=== PATIENT | female | born 1945 | race Caucasian/White ===

== ENCOUNTER 2016-10-23 15:19 | Emergency (ER) | payer MEDICARE, MEDICAID ==
[~2016-10-23] VITALS: Ht 152.4 cm; Wt 69.5 kg
[~2016-10-23 15:19] MED LIST: ACET-171 PO; ALBU2.5V4 INHALATION; ASPI325T32 PO; ATOR80TA PO; BENA20TA PO; BUPR150T12 PO; CITA40TA13 PO; DILT120C52 PO; DOCU250C2 PO; FERR-83 PO; FUR20 PO; GABA-500 PO; INSU100I18 SUBQ; LACT1CAP65 PO; LIDO700A33 TOPICAL; METO25TA6 PO; MORP-32 PO; O SUBCUTA079; OMEP20CA11 PO; OXYC-474 PO; POTA-62 PO; PRAM0.122 PO; QUET25TA PO; SENN-133 PO
[2016-10-23 15:29] VITALS: BP 134/81; PULSE 69; O2SAT 94
--- NOTE | 2016-10-23 17:13 | ED.REPORT ---
HPI-General Illness Date of Service Oct 23, 2016 ED Provider: Srikanth Chiang MD A 71 year old female with a history of colon cancer with colon resection, diabetes, hypertension, and cholecystectomy is brought to the ED via EMS complaining of abdominal pain and a flea infestation. The pt states that she has "over one hundred polyps" in her abdomen that have been causing pain and "pressing into her esophagus" to cause shortness of breath. This condition is being followed up by JAMES Karimi. The pain occurred intermittently two days ago, but became severe enough today that she called paramedics. Her symptoms have mostly resolved in the ED. The pt is also very concerned about fleas on her head and back. She states that she has shaved her hair and put pesticides on her head in an attempt to rid herself of them, but this has not been effective. Nursing Notes Stated Complaint: ABDOMINAL PAIN Chief Complaint: Chest Pain Nursing Notes Reviewed: Yes Allergies: Coded Allergies: Penicillins (Verified Allergy, Severe, RASH, 06/06/16) iodine (Verified Allergy, Severe, SWELLING, 06/06/16) Contrast Media (Verified Allergy, Unknown, SWELLING, 06/06/16) TAPE (Verified Allergy, Unknown, Rash,SWELLING, 06/06/16) Scheduled Acetaminophen (Acetaminophen) 500 Mg Tablet 1,000 MG PO Q6H Aspirin (Aspirin) 325 Mg Tablet 325 MG PO DAILY Atorvastatin (Lipitor) 80 Mg Tablet 80 MG PO DAILY Benazepril (Benazepril) 20 Mg Tablet 20 MG PO DAILY Bupropion ER (Bupropion ER) 150 Mg Tablet.er 150 MG PO DAILY Citalopram (Citalopram) 40 Mg Tablet 40 MG PO DAILY Diltiazem ER (Cartia XT) 120 Mg Cap.er.24h 120 MG PO DAILY Ferrous Sulfate (Ferrous Sulfate) 325 Mg Tablet 325 MG PO DAILY Gabapentin (Gabapentin) 100 Mg Capsule 600 MG PO TID Heparin Sod (Porcine) (Heparin Sod 5,000 Unit/0.5 ml) 0.5 Ml Ml 5,000 UNIT [id number] q 8 hrs Insulin Lispro (HumaLOG U100 Insulin Pen) 100 Unit/1 Ml Insuln.pen 1 UNIT SUBQ BIDAC Blood Sugar Lispro Correction <151 0 units 151-175 1 unit 176-200 2 units 201-225 3 units 226-250 4 units 251-275 5 units 276-300 6 units 301-325 7 units 326-350 8 units 351-375 9 units 376-400 10 units >400 12 units Check blood sugars before meals and at bedtime. Use correction factor only before meals. Lactobacillus Acidophilus (Probiotic) 1 Each Capsule 1 EACH PO BID Metoprolol Tartrate (Metoprolol Tartrate) 25 Mg Tablet 25 MG PO HS Morphine Sulfate ER (Morphine Sulfate ER) 15 Mg Tablet 15 MG PO TID Omeprazole (Omeprazole) 20 Mg Capsule.dr 20 MG PO DAILY Potassium Chloride ER (Potassium Chloride ER) 20 Meq Tablet.er 20 MEQ PO BID TAKE WITH FOOD Pramipexole Dihydrochloride (Mirapex) 0.125 Mg Tablet 0.125 MG PO HS MAY TAKE 1-2 TABS Quetiapine Fumarate (Seroquel) 25 Mg Tablet 25 MG PO HS Sennosides (Senna) 8.6 Mg Tablet 8.6 MG PO DAILY Scheduled PRN Albuterol Neb Soln (Albuterol Neb Soln) 2.5 Mg/3 Ml Vial.neb 2.5 MG INHALATION Q4H PRN PRN For Shortness of Breath Docusate Sodium (Docusate Sodium) 250 Mg Capsule 250 MG PO BID PRN PRN For Constipation Furosemide (Furosemide) 20 Mg Tab 20 MG PO DAILY PRN PRN prn Oxycodone (Roxicodone) 5 Mg Tablet 10 MG PO Q4H PRN PRN For Pain Miscellaneous Medications Lidocaine (Lidocaine) 700 Mg Adh..patch 700 MG TOPICAL Bilateral shoulders - remove after 12hrs General Time Seen by MD: 17:12 Chief Complaint Abdominal pain Hx Obtained From: Patient, EMS Arrived By: Ambulance Sudden in Onset?: No Recent Healthcare: No recent hospitalization, Recent doctor visit Similar Sx Previous: Yes Past Medical History Past Medical History Colon cancer in 2010 Arthritis Reports: Diabetes mellitus, Hyperlipidemia, Hypertension Reports: Atrial fibrillation Past Surgical History Colon ressection 2 back surgueries Left total knee replaement surgery neck surgery 05/05/16 Reports: Cholecystectomy Smoking History Never Smoker Social History Alcohol Use: "Social" Drug Use: Denies drug use Ambulatory Status Independent Review of Systems flea uriel Full Review of Systems Constitutional: Denies: Fever Respiratory: Reports: Shortness of breath, Denies: Non-productive cough GI: Reports: Abdominal pain, Denies: Nausea, Vomiting Musculoskeletal: Denies: Back pain, Neck pain Skin: Denies Rash Complete sys rev & neg: except as marked. Physical Exam Vital Signs Vital Signs Date Time Temp Pulse Resp B/P Pulse Ox O2 Delivery O2 Flow Rate FiO2 10/23/16 17:51 74 20 96 10/23/16 15:29 36.6 69 134/81 94 Room Air Initial VS: Reviewed General/Constitutional: Awake, Alert no fleas visualized on exam Head / Eyes: Atraumatic, Normocephalic, PERRL, EOMI ENT: Atraumatic, Airway patent, Mucous membranes moist Neck: Atraumatic, Supple, Full range of motion Respiratory / Chest: Atraumatic, Breath sounds NL, Breath sounds = bilat, No respiratory distress Cardiovascular: Heart rate NL, Regular rhythm, Heart sounds NL Abdomen: Atraumatic, Soft, Non-tender Back: Atraumatic, Full range of motion Upper Extremities Upper Extremity / MS: Atraumatic, Full range of motion Lower Extremity / Pelvis / MS: Atraumatic, Full range of motion Skin: Atraumatic, Color NL, No rash, Warm, Dry Neurologic: Oriented X3, Speech NL, No motor deficits, No sensory deficits Psychiatric: Affect NL, Mood NL Re-Eval/Medical Decision Med Decision/Clinical Course This woman has a somewhat puzzling presentation. She talks about the 100s of polyps in her stomach and believes that they were the source of the symptoms she was suffering earlier today that have subsequently resolved. She mainly wants to talk about the fleas on her head and now they have been tormenting her for these past weeks. She says that she has put many pesticide products on her head and around her apartment but to no avail. She says that she is also shaved her head in an effort to eradicate the infestation of fleas. She says that she can feel them crawling down her back. When I examined her I do not see any fleas. I looked over her head very thoroughly with a bright light and I cannot see anything that looks until fully. She tells me that her head scarf is also covered in flea larva. I looked at her head scarf carefully and I can see some lint and some whitish material but nothing that looks like a larva or fleas. I did see one black void firm speck but does have somewhat of an appearance of a flea. I looked at it under the loops outside the room in a bright light and I cannot convince myself one way or the other. In any case, she seems quite irritated with me that I do not believe that she has fleas on her head. She has no further complaints about her chest or abdomen and has normal vital signs and a normal exams are not under any other workup right now. I encouraged her to follow up with her primary care doctor to discuss these matters. Source of Hx: Old records Counseled Regarding: Diagnosis, Need for follow-up, When/why to return to ED Discharge & Departure Primary Impression: Abdominal pain Abdominal location: generalized Qualified Code: R10.84 - Generalized abdominal pain Additional Impression: Trichotillomania Disposition: Home Discharge Condition All VS Reviewed: Yes Condition: Stable Patient Instructions: Acute Abdominal Pain (ED) Additional Instructions: I do not suspect an immediately dangerous cause for your abdominal pain or chest pain earlier today. I do not see any fleas on your head. I recommend he follow up with your doctor in the coming week to discuss these symptoms and investigate further as indicated. Referrals: Cat Fuller DO (PCP) Flaco Manning MD Attestation Portions of this note were transcribed by Juan Francisco Neff. I, Dr. Chiang personally performed the history, physical exam and medical decision-making; I reviewed and confirmed the accuracy of the information in the transcribed note. Signed by: Alysha Morris, 10/23/2016 and 17:39. copies to: Cat Fuller DO; Flaco Manning MD, Kirk H MD Oct 23, 2016 17:13 JUAN FRANCISCO NEFF Oct 23, 2016 17:25
[2016-10-23 17:51] VITALS: PULSE 74; RESP 20; O2SAT 96
[2016-11-15] MEDS ORDERED: METF-496 PO (10:34)
[2016-11-15] MEDS ORDERED: ZLP5T PO (10:34)
[2016-11-15] MEDS ORDERED: INSLIS SUBQ (10:34)
[2016-11-15] MEDS ORDERED: ATOR80TA PO (10:34)
[2016-11-15] MEDS ORDERED: GLIP10TA10 PO (10:34)
[2017-02-07] MEDS ORDERED: NYST1000 PO (14:48)
[2017-02-07] MEDS ORDERED: MELO-259 PO (14:48)
[2017-02-07] MEDS ORDERED: ACET-171 PO (14:48)
[2017-02-07] MEDS ORDERED: ALBU1.25 INHALATION (14:48)
[2017-02-07] MEDS ORDERED: ALBU90AE IH (14:48)
== END 2016-10-23 17:56 | disposition home or self-care (01) ==
LOC: SED 15:19
DX: R10.84 Generalized abdominal pain (principal); F63.3 Trichotillomania; E11.9 Type 2 diabetes mellitus without complications; I10 Essential (primary) hypertension; E78.5 Hyperlipidemia, unspecified; Z85.038 Personal history of other malignant neoplasm of large intestine; Z79.82 Long term (current) use of aspirin; Z79.4 Long term (current) use of insulin; Z79.899 Other long term (current) drug therapy; Z90.49 Acquired absence of other specified parts of digestive tract; Z91.041 Radiographic dye allergy status; Z88.0 Allergy status to penicillin

== ENCOUNTER 2016-11-16 07:17 | Day surgery (SDC) | payer MEDICARE, MEDICAID ==
[~2016-11-16] VITALS: Ht 152.4 cm; Wt 70.0 kg
[~2016-11-16 07:17] MED LIST changes: +GLIP10TA10 PO; +INSLIS SUBQ; +METF-496 PO; +ZLP5T PO
[2016-11-16] MEDS ORDERED: Propofol 10,000 mCg/mL 20 mL Inj ONE (07:18)
[2016-11-16] MEDS ORDERED: fentaNYL-PF 50 mCg/mL 2 mL Inj ONE (07:18)
--- NOTE | 2016-11-16 07:20 | PCM.HPANE ---
Patient Data Surgeon Admitting Provider: Attending Provider:Flaco Manning MD Primary Care Physician:Cat Fuller DO Other Provider:Leah Madsen Anesthesia Reason for Visit Gastric Polyps Ht/WT & BMI Body Mass Index Allergies Coded Allergies: Penicillins (Verified Allergy, Severe, RASH, 11/15/16) iodine (Verified Allergy, Severe, SWELLING, 11/15/16) Contrast Media (Verified Allergy, Unknown, SWELLING, 11/15/16) TAPE (Verified Allergy, Unknown, Rash,SWELLING, 11/15/16) Past Anesthesia History Anesthesia History: Denies:: Abnormal Airway, Anesthesia Reactions, Difficult Intubation, Fam Anesthesia Reaction, Fam Malignant Hypertherm, Malignant Hyperthermia Diabetes History Hx Diabetes?: Yes Type of Diabetes: Type II Glycemic Control: Insulin & Oral Medication MRSA MRSA: No Medications Blood Thinner: Aspirin Active Scripts Benazepril 20 Mg Lazlbe84 Mg PO DAILY #30 TABLET Ref 1 Prov:Quirino Koehler DO 06/08/16 Reported Medications Insulin Detemir (Levemir U100 Insulin Vial)100 Unit/1 Ml Vial1 Unit SUBQ BID #1 VIAL Ref 0 11/16/16 HydrOXYzine HCl 10 Mg Lcbrrf42 Mg PO HS PRN For Itching Ref 0 11/16/16 Metformin ER 1,000 Mg Tablet1,000 Mg PO DAILY Ref 0 11/15/16 Atorvastatin (Lipitor)80 Mg Lqajou90 Mg PO DAILY Ref 0 11/15/16 Glipizide 10 Mg Vvljbn18 Mg PO DAILY 30 Days 11/15/16 Zolpidem (Ambien)5 Mg Tablet5 Mg PO HS PRN For Insomnia Ref 0 11/15/16 Lactobacillus Acidophilus (Probiotic)1 Each Capsule1 Each PO BID 06/07/16 Docusate Sodium 250 Mg Gorzhqb003 Mg PO BID PRN For Constipation Ref 0 06/07/16 Oxycodone (Roxicodone)5 Mg Hkbaus58 Mg PO Q4H PRN For Pain Ref 0 06/07/16 Morphine Sulfate ER 15 Mg Zgctra85 Mg PO TID 06/07/16 Ferrous Sulfate 325 Mg Lklnyx336 Mg PO DAILY 30 Days Ref 0 06/07/16 Diltiazem ER (Cartia XT)120 Mg Cap.er.89l970 Mg PO DAILY 06/07/16 Bupropion ER 150 Mg Tablet.er150 Mg PO DAILY Ref 0 06/07/16 Aspirin 325 Mg Wsjpkg599 Mg PO DAILY #1 BOTTLE 06/07/16 Citalopram 40 Mg Jslxfs96 Mg PO DAILY 30 Days Ref 0 08/18/15 Furosemide 20 Mg Tab20 Mg PO DAILY PRN prn Ref 0 05/26/15 Omeprazole 20 Mg Capsule.dr20 Mg PO DAILY Ref 0 04/28/15 Metoprolol Tartrate 25 Mg Qpioir07 Mg PO HS 30 Days Ref 0 03/31/15 Gabapentin 100 Mg Jriibrk531 Mg PO TID 30 Days Ref 0 03/17/15 Discontinued Reported Medications Insulin Human Lispro (HumaLOG U100 Insulin Vial)100 Unit/Ml Unit1 Unit SUBQ PRN #1 VIAL Ref 0 Check blood sugars before meals and at bedtime. Use correction factor only before meals. Blood Sugar Lispro Correction: <151, 0 units; 151-175, 1 unit; 176-200, 2 units; 201-225, 3 units; 226-250, 4 units; 251-275, 5 units; 276-300, 6 units; 301-325, 7 units; 326-350, 8 units; 351-375, 9 units; 376-400, 10 units; >400, 12 units. 11/15/16 Lidocaine 700 Mg Adh.. Mg TOPICAL Bilateral shoulders - remove after 12hrs 06/07/16 Insulin Lispro (HumaLOG U100 Insulin Pen)100 Unit/1 Ml Insuln.pen1 Unit SUBQ BIDAC #1 PENINJ Ref 0 Blood Sugar Lispro Correction <151 0 units 151-175 1 unit 176-200 2 units 201-225 3 units 226-250 4 units 251-275 5 units 276-300 6 units 301-325 7 units 326-350 8 units 351-375 9 units 376-400 10 units >400 12 units Check blood sugars before meals and at bedtime. Use correction factor only before meals. 06/07/16 Albuterol Neb Soln 2.5 Mg/3 Ml Vial.neb2.5 Mg INHALATION Q4H PRN For Shortness of Breath Ref 0 06/07/16 Acetaminophen 500 Mg Tablet1,000 Mg PO Q6H 06/07/16 Heparin Sod (Porcine) (Heparin Sod 5,000 Unit/0.5 ml)0.5 Ml Ml5,000 Unit LMMYCZS222 q 8 hrs 06/07/16 Potassium Chloride ER 20 Meq Tablet.er20 Meq PO BID Ref 0 TAKE WITH FOOD 06/07/16 Quetiapine Fumarate (Seroquel)25 Mg Gajpil34 Mg PO HS Ref 0 06/07/16 Sennosides (Senna)8.6 Mg Tablet8.6 Mg PO DAILY 06/07/16 Atorvastatin (Lipitor)80 Mg Yfpuuu55 Mg PO DAILY Ref 0 09/16/15 Pramipexole Dihydrochloride (Mirapex)0.125 Mg Tablet0.125 Mg PO HS MAY TAKE 1-2 TABS 03/17/15 History History of ENT Problems?: Yes HEENT History: Positive for:: Cataracts (S/P EXTRACTION) Sinus Problem (SEASONAL ALLERGIES.RHINITIS) Denies:: Abnormal Airway Difficult Intubation Dysphagia Hearing Problem TMJ Hx of Heart Problems?: Yes Cardiovascular History: Positive for:: Atrial Fibrillation Edema Heart Murmur (ECHO 06/2014) Hypertension Irregular Heartbeat (HX OF-CURRENTLY IN SINUS RHYTHM 02/2015) Denies:: AICD Abdominal Aortic Aneurism Cardiac Surgery Chest Pain Congestive Heart Failure Pacemaker Rheumatic Fever Thrombophlebitis Valvular Heart Disease Hx of Respiratory Problem?: Yes Respiratory History: Positive for:: Asthma Dyspnea (DAIGLE) Pneumonia Use of C-PAP Machine (GAGANDEEP+ NONCOMPLIANT W/ CPAP SLEEP STUDY 07/2011) Denies:: COPD Chest Surgery Cough Emphysema Hemoptysis Oxygen Administration Pulmonary Embolism Tuberculosis Hx Neurologic Problems?: Yes Neurological History: Positive for:: Dizziness (today at home) Denies:: Alzheimer's Disease CVA Dementia Headaches Multiple Sclerosis Parkinson's Disease Seizures Other Neurological Pertinent: cervical nerve damage, muslce loss hand. fused neck Hx of GI Problems?: Yes Gastrointestinal History: Positive for:: Gastroesphageal Reflux Hiatal Hernia Denies:: Cirrhosis Diverticulitis Gastrointestinal Bleeding Heartburn Hepatitis Rectal Bleeding Hx of Problems?: Yes Genitourinary History: Positive for:: Urinary Tract Infection (HX OF KIDNEY INFECTIONS) Denies:: HX of Hemodialysis Kidney Stones HX of Peritoneal Dialysis: No Female Hx: Denies:: Currently Endometriosis Pelvic Inflammatory Problems with Breasts? Skin History: Positive for:: History Skin Disorders? (INTERMITTANT RASHES- YEAST) Denies:: Pressure Ulcers Hx Musculoskeletal Problems?: Yes Musculoskeletal History: Positive for:: Degenerative Joint Musculoskeletal Trauma (S/P ORIF ANKLE) Denies:: Back Injury Joint Replacement Systemic Lupus Hx of Psycho/Social Problems?: Yes Psycho Social History: Positive for:: Anxiety Hx Depression Denies:: Bipolar Disorder Suicide Attempt Hx Surgeries?: Yes (PT cant remember) Hx Any Other Health Problems?: Yes Other History: Positive for:: Cancer (COLON) Hospitalization Denies:: Endocrine Disease (C/OF HEAT & COLD INTOLERANCE) Thyroid Disease History Blood Transfusions: Denies:: Blood Transfuse Reaction Blood Transfusions Hx Diabetes: Yes Hx Alcohol Use: NoHx Substance Use: No (takes Morphine and oxycodone for pain) Smoking Status: Never Smoker Have You Smoked inLast 12 mo: No Stop/Bang Risk Assessment Category Category 1A: Patient has history of documented sleep apnea, and HAS NOT received any narcotic, sedative or anesthesia administration during this stay. Category 1B: Patient has history of documented sleep apnea, and HAS received any narcotic , sedative or anesthesia administration during this stay Category 2: Patient has SUSPECTED Obstructive Sleep Apnea, and HAS received any narcotic , sedative or anesthesia administration during this stay. Category 3: Patient has SUSPECTED Obstructive Sleep Apnea and HAS NOT received narcotic, sedative or anesthesia administration during this stay. Category 4: Outpatient in Procedural Areas with known sleep apnea or who screen positive for High Risk via the STOP/BANG questionnaire. Exam Exam General Appearance: Alert, Oriented X3, Cooperative, No Acute Distress HEENT/AIRWAY: MP 2 Lungs: Clear to Auscultation, Normal Air Movement Heart: Exam Unremarkable, Regular Rate/Rhythm, No Murmurs/Rubs/Gallops Plan Impression Patient chart reviewed, patient interviewed and anesthestic plan with risks, benefits, and alternatives discussed, and informed consent obtained. NPO Status: greater than 8 hours for solids and greater than 2 hours for sips of H2O ASA Physical Status: ASA2 Mod Systemic Disease Anesthetic Plan: MAC Bene/Risks/Altern/Consents: Yes HP Complete Prior to Induction: Yes Jordy Obrien MD Nov 16, 2016 07:20
[2016-11-16 07:33] VITALS: BP 124/74; PULSE 67; RESP 16; O2SAT 94
[2016-11-16] MEDS ORDERED: INSU100V4 SUBQ (07:47)
[2016-11-16] MEDS ORDERED: HYDR-3605 PO (07:47)
[2016-11-16] MEDS: Lactated Ringer's 1,000 ML IV ONE ×2 (08:05→08:35)
[2016-11-16] MEDS ORDERED: Lactated Ringer's 1,000 ML IV SCH (08:38)
--- NOTE | 2016-11-16 08:38 | PCM.ANEP1 ---
Post Anesthesia Phase 1 PACU Phase 1 Assessment Vital Signs Vital Signs Date Time Temp Pulse Resp B/P Pulse Ox O2 Delivery O2 Flow Rate FiO2 11/16/16 07:33 36.0 67 16 124/74 94 Room Air Anesthetic Administered: MAC Level of Alertness: Awake, talking DEVI's with Equal Strength: Yes Pain: No Nausea or Vomiting: No Oxygen Delivery: Nasal Cannula Lungs: Clear to Auscultation, Normal Air Movement Jordy Obrien MD Nov 16, 2016 08:38
[2016-11-16] MEDS ORDERED: MetoCLOpramide 5 mg/mL 2 mL Inj IVPUSH PRN (08:40)
[2016-11-16] MEDS ORDERED: Ondansetron 2 mg/mL 2 mL Inj IVPUSH PRN (08:40)
--- NOTE | 2016-11-16 08:42 | PCM.ANEP2 ---
Post Anesthesia Evaluation ASA/CMS Post Anesthesia VS in Patient's Normal Range?: Yes Resp Stable; Airway Patent?: Yes CV Function & Hydration Stable: Yes Mental Status Recovered?: Yes Pain control Satisfactory?: Yes N/V Control Satisfactory?: Yes Jordy Obrien MD Nov 16, 2016 08:42
[2016-11-16 08:44] VITALS: BP 115/73; PULSE 66; RESP 10; O2SAT 94
[2016-11-16 08:53] VITALS: BP 94/63; PULSE 66; RESP 10; O2SAT 95
--- NOTE | 2016-11-16 09:19 | ENDO ---
[address] [address] ENDOSCOPY PROCEDURE PATIENT: MARLEN WATKINS : 1945 MR#: [id number] ADMIT: 11/16/2016 JOB ID: [id number] DATE: 11/16/2016 PRIMARY PROVIDER: Cat Fernandez PROCEDURE: Esophagogastroduodenoscopy with hot snare polypectomy, Resolution 365 clip deployment and Parnell net retrieval. INDICATIONS: A 71-year-old female with gastric polyposis returning for surveillance. EQUIPMENT: GIF H 180 J. SEDATION: Monitored anesthesia as provided by Dr. Jordy Obrien. COMPLICATIONS: None identified. PROCEDURAL INFORMATION: After the risks and benefits were explained, written and verbal informed consent was obtained. The patient was brought into the endoscopy suite and placed into the left lateral decubitus position. Sedation was achieved as above. The scope introduced into the mouth through the bite block, and advanced under direct visualization to the second portion of the duodenum. Retroflexed views were accomplished in the stomach. After polypectomies and clip deployment, the polyps were removed using the Parnell net. FINDINGS: 1. Duodenum: No pathology identified from the bulb through to the second portion. 2. Stomach: No outlet obstruction. No mass lesions. No ulcers. The patient again had diffuse polyposis with numerous large polyps in and around 12-13 mm throughout the body. A couple of the larger polyps were removed successfully. One of the smaller polyps that was slightly more inflammatory with a little more broad base was removed from near the cardia and there was some bleeding that followed, perhaps 10-15 cc of blood was lost. A 365 Resolution clip was successfully placed approximating the mucosa for complete hemostasis. Retroflexed views disclosed otherwise a hiatal hernia. 3. Esophagus: The squamocolumnar junction correlated with the top of the gastric folds. No acute erosive changes. No strictures. No mass lesions. ENDOSCOPIC DIAGNOSIS: 1. Hiatal hernia. 2. Gastric polyps (two of the three polyps were retrieved, the smallest of the three polyps was not found in the blood debris following removal). RECOMMENDATIONS: 1. Await histopathology. 2. Continue to hold aspirin for the next five days. 3. Repeat EGD for surveillance in one year with anesthesia.
--- NOTE | 2016-11-17 11:25 | PATH ---
SURGICAL PATHOLOGY Attending Physician:Anita Amaya CASE STATUS: Signed Out PATIENT NAME: MARLEN WATKINS PID: [id number] : 1945 DATE COLLECTED:11/16/2016 17:01 SPECIMEN: Stomach, Polyp, Biopsy CLINICAL HISTORY: 1). GASTRIC POLYPS FINAL DIAGNOSIS: 1.GASTRIC POLYPS: FUNDIC GLAND POLYPS. Negative for Helicobacter organisms. Negative for intestinal metaplasia. Negative for dysplasia and malignancy. ICD10 CODE K31.7 GROSS DESCRIPTION: The specimen is received in one formalin filled container labeled with the patient's name, sublabeled "gastric polyps" and consists of 2 portions of tissue which aggregate to 2.5 x 1.5 x 1.2 CM. The first piece is trisected and entirely submitted in cassette A. the second piece is trisected and entirely submitted in cassettes B., C. 11/16/2016 DAC MICRO DESCRIPTION: See diagnosis. ICD-9 CODES: CPT CODES: 1: 13364 Electronically Signed Out Karey Delgado MD [facility] [address], [place] [address] Technical component performed at [facility], [address] [place] [address] Ave[address], [place], [address]
[2017-02-07] MEDS ORDERED: MELO-259 PO (14:48)
[2017-02-07] MEDS ORDERED: ACET-171 PO (14:48)
[2017-02-07] MEDS ORDERED: ALBU90AE IH (14:48)
[2017-02-07] MEDS ORDERED: ALBU1.25 INHALATION (14:48)
[2017-02-07] MEDS ORDERED: NYST1000 PO (14:48)
== END 2016-11-16 23:59 | disposition home or self-care (01) ==
LOC: END 07:17
PROVIDERS: ATTEND Internal Medicine Gastroenterology
DX: K31.7 Polyp of stomach and duodenum (principal); K21.9 Gastro-esophageal reflux disease without esophagitis; K44.9 Diaphragmatic hernia without obstruction or gangrene; I48.91 Unspecified atrial fibrillation; J45.909 Unspecified asthma, uncomplicated; R42 Dizziness and giddiness; F41.9 Anxiety disorder, unspecified; F32.9 Major depressive disorder, single episode, unspecified; Z79.82 Long term (current) use of aspirin; Z79.4 Long term (current) use of insulin; Z79.899 Other long term (current) drug therapy

== ENCOUNTER 2017-02-08 07:15 | Day surgery (SDC) | payer MEDICARE, MEDICAID ==
[~2017-02-08] VITALS: Ht 152.4 cm; Wt 72.6 kg
--- NOTE | 2017-02-08 07:02 | PCM.HPANE ---
Patient Data Surgeon Admitting Provider: Attending Provider:Flaco Manning MD Primary Care Physician:Cat Fuller DO Other Provider:Leah Madsen Anesthesia Reason for Visit Rectal Bleeding Ht/WT & BMI Body Mass Index Allergies Coded Allergies: Penicillins (Verified Allergy, Severe, RASH, 11/15/16) acetaminophen (Verified Allergy, Severe, Rash, 02/07/17) iodine (Verified Allergy, Severe, SWELLING, 11/15/16) oxycodone (Verified Allergy, Severe, Rash, 02/07/17) Contrast Media (Verified Allergy, Unknown, SWELLING, 11/15/16) TAPE (Verified Allergy, Unknown, Rash,SWELLING, 11/15/16) Past Anesthesia History Anesthesia History: Denies:: Abnormal Airway, Anesthesia Reactions, Difficult Intubation, Fam Anesthesia Reaction, Fam Malignant Hypertherm, Malignant Hyperthermia Diabetes History Hx Diabetes?: Yes Type of Diabetes: Type II Glycemic Control: Insulin & Oral Medication MRSA MRSA: No Medications Blood Thinner: Aspirin Hypertension Medication: No Home Meds Incl Beta Ron: No Date Beta Ron Taken: Feb 07, 2017 Time Beta Ron Taken: 20:00 Active Scripts Benazepril 20 Mg Mjkkme90 Mg PO DAILY #30 TABLET Ref 1 Prov:Quirino Koehler DO 06/08/16 Reported Medications hydrOXYzine Hcl (HydrOXYzine Hcl)25 Mg Moqgej14 Mg PO HS PRN Insomnia 02/08/17 Albuterol Sulfate (Proair Respiclick)90 Mcg Aer.pow.ba90 Mcg IH QID 02/07/17 Nystatin 100,000 Unit/1 Ml Oral.llyo606,000 Unit PO QID 02/07/17 Meloxicam 7.5 Mg Tablet7.5 Mg PO DAILY 30 Days Ref 0 02/07/17 Albuterol Neb Soln 1.25 Mg/3 Ml Vial.neb1.25 Mg INHALATION Q4H PRN For Shortness of Breath Ref 0 02/07/17 Acetaminophen 500 Mg Gacmbu798 Mg PO Q6H PRN For Fever 02/07/17 Insulin Detemir (Levemir U100 Insulin Vial)100 Unit/1 Ml Vial1 Unit SUBQ BID #1 VIAL Ref 0 11/16/16 Atorvastatin (Lipitor)80 Mg Fhifah80 Mg PO DAILY Ref 0 11/15/16 Glipizide 10 Mg Mjlyxf14 Mg PO DAILY 30 Days 11/15/16 Docusate Sodium 250 Mg Hymbikp008 Mg PO BID PRN For Constipation Ref 0 06/07/16 Oxycodone (Roxicodone)5 Mg Zbxtvc29 Mg PO Q4H PRN For Pain Ref 0 06/07/16 Ferrous Sulfate 325 Mg Koxydu576 Mg PO DAILY 30 Days Ref 0 06/07/16 Diltiazem ER (Cartia XT)120 Mg Cap.er.64b335 Mg PO DAILY 06/07/16 Bupropion ER 150 Mg Tablet.er150 Mg PO DAILY Ref 0 06/07/16 Aspirin 325 Mg Iiuage466 Mg PO DAILY #1 BOTTLE 06/07/16 Citalopram 40 Mg Qsuezi58 Mg PO DAILY 30 Days Ref 0 08/18/15 Furosemide 20 Mg Tab20 Mg PO DAILY PRN prn Ref 0 05/26/15 Omeprazole 20 Mg Capsule.dr20 Mg PO DAILY Ref 0 04/28/15 Metoprolol Tartrate 25 Mg Kycmej70 Mg PO HS 30 Days Ref 0 03/31/15 Discontinued Reported Medications Zolpidem (Ambien)5 Mg Tablet5 Mg PO HS PRN For Insomnia Ref 0 11/15/16 HydrOXYzine HCl 10 Mg Bhmnap14 Mg PO HS PRN For Itching Ref 0 11/16/16 Metformin ER 1,000 Mg Tablet1,000 Mg PO DAILY Ref 0 11/15/16 Lactobacillus Acidophilus (Probiotic)1 Each Capsule1 Each PO BID 06/07/16 Morphine Sulfate ER 15 Mg Yrvoew63 Mg PO TID 06/07/16 Gabapentin 100 Mg Szttnuq120 Mg PO TID 30 Days Ref 0 03/17/15 History History of ENT Problems?: Yes HEENT History: Positive for:: Cataracts (S/P EXTRACTION) Sinus Problem (SEASONAL ALLERGIES.RHINITIS) Denies:: Abnormal Airway Difficult Intubation Dysphagia Hearing Problem TMJ Denture Type: None Teeth Condition: Within Normal Limits Hx of Heart Problems?: Yes Cardiovascular History: Positive for:: Atrial Fibrillation Edema Heart Murmur (ECHO 06/2014) Hypertension Irregular Heartbeat (HX OF-CURRENTLY IN SINUS RHYTHM 02/2015) Denies:: AICD Abdominal Aortic Aneurism Cardiac Surgery Chest Pain Congestive Heart Failure Pacemaker Rheumatic Fever Thrombophlebitis Valvular Heart Disease Hx of Respiratory Problem?: Yes Respiratory History: Positive for:: Asthma Dyspnea (DAIGLE) Pneumonia Use of C-PAP Machine (GAGANDEEP+ NONCOMPLIANT W/ CPAP SLEEP STUDY 07/2011) Denies:: COPD Chest Surgery Cough Emphysema Hemoptysis Oxygen Administration Pulmonary Embolism Tuberculosis Hx Neurologic Problems?: Yes Neurological History: Positive for:: Dizziness (today at home) Denies:: Alzheimer's Disease CVA Dementia Headaches Multiple Sclerosis Parkinson's Disease Seizures Hx of GI Problems?: Yes Hx of Problems?: Yes Genitourinary History: Positive for:: Urinary Tract Infection (HX OF KIDNEY INFECTIONS) Denies:: HX of Hemodialysis Kidney Stones HX of Peritoneal Dialysis: No Female Hx: Denies:: Currently Endometriosis Pelvic Inflammatory Problems with Breasts? Skin History: Positive for:: History Skin Disorders? (INTERMITTANT RASHES- YEAST) Denies:: Pressure Ulcers Hx Musculoskeletal Problems?: Yes Musculoskeletal History: Positive for:: Degenerative Joint Musculoskeletal Trauma (S/P ORIF ANKLE) Denies:: Back Injury Joint Replacement Systemic Lupus Hx of Psycho/Social Problems?: Yes Psycho Social History: Positive for:: Anxiety Hx Depression Denies:: Bipolar Disorder Suicide Attempt Hx Surgeries?: Yes (PT cant remember, MOST RECENTLY NECK SX) Hx Any Other Health Problems?: Yes Other History: Positive for:: Cancer (COLON) Hospitalization Denies:: Endocrine Disease (C/OF HEAT & COLD INTOLERANCE) Thyroid Disease History Blood Transfusions: Denies:: Blood Transfuse Reaction Blood Transfusions Hx Diabetes: Yes Hx Alcohol Use: NoHx Substance Use: No (takes Morphine and oxycodone for pain) Smoking Status: Never Smoker Have You Smoked inLast 12 mo: No Stop/Bang Treated for Sleep Apnea?: No Do You Have a CPAP Machine?: No Risk Assessment Category Category 1A: Patient has history of documented sleep apnea, and HAS NOT received any narcotic, sedative or anesthesia administration during this stay. Category 1B: Patient has history of documented sleep apnea, and HAS received any narcotic , sedative or anesthesia administration during this stay Category 2: Patient has SUSPECTED Obstructive Sleep Apnea, and HAS received any narcotic , sedative or anesthesia administration during this stay. Category 3: Patient has SUSPECTED Obstructive Sleep Apnea and HAS NOT received narcotic, sedative or anesthesia administration during this stay. Category 4: Outpatient in Procedural Areas with known sleep apnea or who screen positive for High Risk via the STOP/BANG questionnaire. Exam Exam General Appearance: Alert, Oriented X3, Cooperative, No Acute Distress HEENT/AIRWAY: MP 2 Lungs: Clear to Auscultation, Normal Air Movement Heart: Exam Unremarkable, Regular Rate/Rhythm, No Murmurs/Rubs/Gallops Plan Impression Patient chart reviewed, patient interviewed and anesthestic plan with risks, benefits, and alternatives discussed, and informed consent obtained. NPO per Anesth. Guidelines: Yes ASA Physical Status: ASA3 Severe Disease Anesthetic Plan: MAC Bene/Risks/Altern/Consents: Yes HP Complete Prior to Induction: Yes Trevor Ibrahim MD Feb 08, 2017 07:02
[~2017-02-08 07:15] MED LIST changes: +ALBU1.25 INHALATION; -ALBU2.5V4 INHALATION; +ALBU90AE IH; -GABA-500 PO; -INSLIS SUBQ; -INSU100I18 SUBQ; +INSU100V4 SUBQ; -LACT1CAP65 PO; -LIDO700A33 TOPICAL; +Lactated Ringer's 1,000 ML IV ONE; +Lactated Ringer's 1,000 ML IV SCH; +MELO-259 PO; -METF-496 PO; -MORP-32 PO; +MetoCLOpramide 5 mg/mL 2 mL Inj IVPUSH PRN; +NYST1000 PO; -O SUBCUTA079; +Ondansetron 2 mg/mL 2 mL Inj IVPUSH PRN; -POTA-62 PO; -PRAM0.122 PO; -QUET25TA PO; -SENN-133 PO
[2017-02-08] MEDS ORDERED: Propofol 10,000 mCg/mL 20 mL Inj ONE (07:16)
[2017-02-08] MEDS ORDERED: fentaNYL-PF 50 mCg/mL 2 mL Inj ONE (07:16)
[2017-02-08] MEDS ORDERED: Ketamine 10 mg/mL 20 mL Inj ONE (07:16)
[2017-02-08] MEDS ORDERED: HYDR-656 PO (07:50)
[2017-02-08 07:58] VITALS: BP 120/73; PULSE 66; RESP 17; O2SAT 93
[2017-02-08 08:47] VITALS: BP 106/70; PULSE 63; RESP 16; O2SAT 96
[2017-02-08 08:57] VITALS: BP 124/73; PULSE 65; RESP 16; O2SAT 92
[2017-02-08 09:07] VITALS: BP 121/62; PULSE 67; RESP 16; O2SAT 93
--- NOTE | 2017-02-08 09:18 | ENDO ---
[address] [address] ENDOSCOPY PROCEDURE PATIENT: MARLEN WATKINS : 1945 MR#: [id number] ADMIT: 02/08/2017 JOB ID: [id number] DATE OF SERVICE: 02/08/2017 PRIMARY PROVIDER: Cat Fernandez DO PROCEDURES: 1. Colonoscopy. 2. Cold forceps polypectomy. 3. Cold snare polypectomy. INDICATIONS: A 72-year-old female who had transient rectal bleeding of uncertain etiology. She has a personal history of colon polyps and a personal history of colon cancer. EQUIPMENT: Azuki (Vozero/Gengibre)-180-AL. SEDATION: Monitored anesthesia as provided by Dr. Trevor Ibrahim. COMPLICATIONS: None identified. BOWEL PREPARATION: Fair. PROCEDURE INFORMATION: After the risks and benefits were explained, written and verbal informed consent was obtained. The patient was brought into the endoscopy suite and placed in the left lateral decubitus position. Sedation was achieved using the above-stated medications with the addition of oxygen via nasal cannula. A digital rectal examination was accomplished and no significant pathology apart from some mild internal hemorrhoids noted. The scope was introduced into the rectum and advanced under direct visualization to the level of the cecum, as identified by the appendiceal orifice and ileocecal valve. The scope was slowly withdrawn to carefully examine the mucosa for any defects or lesions. Retroflexed views were avoided in the rectum. Multiple direct views were made through the dentate line for exclusion of pathology. The colon was decompressed. The scope removed from the patient who tolerated the procedure well. Low-lying anastomosis widely patent again noted. In the left colon, there was a small polyp perhaps 4-5 mm removed with cold snare. In the cecum, there was a diminutive 3-4 mm polyp removed with cold forceps. No other significant pathology was appreciated throughout. ENDOSCOPIC DIAGNOSES: 1. Normal low-lying colorectal anastomosis. 2. Small colon polyps x2. 3. Mild to moderate internal hemorrhoids. RECOMMENDATIONS: 1. Await histopathology. 2. Repeat colonoscopy with Anesthesia in three years.
--- NOTE | 2017-02-08 10:38 | PCM.ANEP1 ---
Post Anesthesia PACU Phase 1 Assessment Vital Signs Vital Signs Date Time Temp Pulse Resp B/P Pulse Ox O2 Delivery O2 Flow Rate FiO2 02/08/17 09:07 67 16 121/62 93 Room Air 02/08/17 08:57 65 16 124/73 92 Room Air 02/08/17 08:47 63 16 106/70 96 Room Air 02/08/17 07:58 66 17 120/73 93 Room Air Anesthetic Administered: MAC Level of Alertness: Awake, talking EDVI's with Equal Strength: Yes Pain: No Nausea or Vomiting: No CV Function & Hydration Stable: Yes Airway Device: none Lungs: Clear to Auscultation, Normal Air Movement Dermatome Level: Full Sensation PACU Phase 2 Assessment Complications: No Follow up Care: No Patient Instructions Provided: Yes Trevor Ibrahim MD Feb 08, 2017 10:38
--- NOTE | 2017-02-09 13:53 | PATH ---
SURGICAL PATHOLOGY Attending Physician:Anita Amaya CASE STATUS: Signed Out PATIENT NAME: MARLEN WATKINS PID: [id number] : 1945 DATE COLLECTED:02/08/2017 19:47 SPECIMEN: Colon, Biopsy CLINICAL HISTORY: 1). COLON POLYPS X2 FINAL DIAGNOSIS: 1.COLON POLYPS: TUBULAR ADENOMA INVOLVING BOTH BIOPSY FRAGMENTS. ICD10 D12.6 GROSS DESCRIPTION: The specimen is received in one formalin filled container labeled with the patient's name, sublabeled "colon polyps" and consists of 2 portions of tissue which aggregate to 0.3 x 0.3 x 0.2 CM. The specimen is entirely submitted in one cassette. 02/08/2017 DAC MICRO DESCRIPTION: See diagnosis. ICD-9 CODES: CPT CODES: 1: 39015 Electronically Signed Out Flaco Aldrich MD Located Within [facility] Pathology [facility] [address], [place] [address] Technical component performed at [facility], [facility] [address], [place], [address]
== END 2017-02-08 23:59 | disposition home or self-care (01) ==
LOC: END 07:15
PROVIDERS: ATTEND Internal Medicine Gastroenterology
DX: D12.4 Benign neoplasm of descending colon (principal); D12.0 Benign neoplasm of cecum; K64.8 Other hemorrhoids; K62.5 Hemorrhage of anus and rectum; I10 Essential (primary) hypertension; E78.5 Hyperlipidemia, unspecified; E11.9 Type 2 diabetes mellitus without complications; I48.0 Paroxysmal atrial fibrillation; G47.33 Obstructive sleep apnea (adult) (pediatric); M19.90 Unspecified osteoarthritis, unspecified site; J45.909 Unspecified asthma, uncomplicated; F41.8 Other specified anxiety disorders; Z90.49 Acquired absence of other specified parts of digestive tract; Z86.010 Personal history of colon polyps; Z85.038 Personal history of other malignant neoplasm of large intestine; Z79.82 Long term (current) use of aspirin; Z79.4 Long term (current) use of insulin; Z79.84 Long term (current) use of oral hypoglycemic drugs; Z87.891 Personal history of nicotine dependence; Z79.891 Long term (current) use of opiate analgesic
CPT/HCPCS: 45380; 45385; J3010; J7120